=== PATIENT | female | born 1955 | race Caucasian/White ===

== ENCOUNTER → 2023-06-15 | Outpatient (CLI) | payer MEDICARE, BC | LOC: COL.RAD 06:46 | DX: N32.89 Other specified disorders of bladder (principal); N30.21 Other chronic cystitis with hematuria ==

== ENCOUNTER 2023-08-02 13:12 | Day surgery (SDC) | payer MEDICARE, BC ==
[~2023-08-02] VITALS: Ht 167.6 cm; Wt 75.0 kg
[2023-08-02] MEDS ORDERED: CALCIUM CITRAT200 M2 (14:04)
[2023-08-02] MEDS ORDERED: LIPITOR 40MG TA40 MG PO (14:04)
[2023-08-02] MEDS ORDERED: CRANBERRY 4001 EACH PO (14:05)
[2023-08-02] MEDS ORDERED: LANTUS100 U/ML SQ (14:07)
[2023-08-02] MEDS ORDERED: ESTRADERM0.1 MG/24 TD (14:07)
[2023-08-02] MEDS ORDERED: COZAAR 50MG50 MG/TAB PO (14:08)
[2023-08-02] MEDS ORDERED: MOBIC 7.5MG7.5 MG PO (14:08)
[2023-08-02] MEDS ORDERED: MACRODANTIN50 MG/CA1 PO (14:09)
[2023-08-02] MEDS ORDERED: SYNJARDY 12.5-1 EAC1 PO (14:12)
[2023-08-02] MEDS ORDERED: NOVOLOG 100U100 U/M1 SQ (14:12)
[2023-08-02] MEDS ORDERED: SYNTHROID0.137 MG PO (14:13)
[2023-08-02] MEDS ORDERED: VITAMINC500CH (14:13)
[2023-08-02] MEDS ORDERED: VITAMIN D 50,1.25 MG PO (14:13)
[2023-08-02] MEDS ORDERED: B12 PO (14:14)
[2023-08-02] MEDS ORDERED: METAMUCIL PO (14:15)
[2023-08-02 14:32] VITALS: BP 159/66; PULSE 74; TEMP 98.2
[2023-08-02 16:30] VITALS: BP 124/46; PULSE 60; TEMP 97.9
[2023-08-02 16:45] VITALS: BP 151/58; PULSE 58
[2023-08-02 17:00] VITALS: BP 142/47; PULSE 64
--- NOTE | 2023-08-02 17:25 | NUR ---
1630 RETURNS TO ROOM 1 PER CART. AWAKE, AELRT. RESP UNLABORED. HOB ELEVATED 60 DEGREES. DENIES ABD PAIN, REPORTS URINARY URGENCY. VITAL SIGNS OBTAINED 1632 AMBULATES TO BATHROOM WITH STANDBY ASSIST. REPORTS VOIDED WITHOUT DIFFICULTY. URINE LIGHT RED. 1635 LYING ON CART. HOB ELEVATED 70 DEGREES. CALL LIGHT AT SIDE. IN ROOM 1650 TOLERATES PO SODA AND CHEESE WITHOUT NAUSEA 1700 DISCHARGE INSTRUCTIONS REVIEWED. PATIENT VERBALIZES UNDERSTANDING. COPY PROVIDED IN DISCHARGE FOLDER 1714 SITS ON EDGE OF CART, DRESSES SELF, THEN AGAIN AMBULATES TO BATHROOM AND VOIDS WITHOUT DIFFICULTY
== END 2023-08-02 17:25 | disposition home or self-care (01) ==
LOC: SDCO 13:12
DX: N35.92 Unspecified urethral stricture, female (principal); N39.46 Mixed incontinence; R35.0 Frequency of micturition; R39.14 Feeling of incomplete bladder emptying; R39.11 Hesitancy of micturition; R31.29 Other microscopic hematuria; N30.20 Other chronic cystitis without hematuria; R82.81 Pyuria; Z79.899 Other long term (current) drug therapy; Z87.891 Personal history of nicotine dependence
CPT/HCPCS: C1769; J0690; J2405; J2704; J3010; J7120

== ENCOUNTER 2024-05-12 05:55 | Day surgery (SDC) | payer MEDICARE, BC, OTHER ==
[2024-05-12] VITALS (7 sets, daily range): BP systolic 119–151; BP diastolic 45–76; PULSE 57–83; TEMP 97.1–98.5
[~2024-05-12] VITALS: Ht 167.6 cm; Wt 74.6 kg
[~2024-05-12 05:55] MED LIST: B12 PO; CALCIUM CITRAT200 M2; COZAAR 50MG50 MG/TAB PO; CRANBERRY 4001 EACH PO; ESTRADERM0.1 MG/24 TD; LANTUS100 U/ML SQ; LIPITOR 40MG TA40 MG PO; MACRODANTIN50 MG/CA1 PO; METAMUCIL PO; MOBIC 7.5MG7.5 MG PO; NOVOLOG 100U100 U/M1 SQ; SYNJARDY 12.5-1 EAC1 PO; SYNTHROID0.137 MG PO; VITAMIN D 50,1.25 MG PO; VITAMINC500CH
[2024-05-12] MEDS ORDERED: OZEMPIC0.25 MG/02 SQ (06:55)
[2024-05-12] MEDS ORDERED: FORT1000TA PO (06:57)
[2024-05-12] MEDS ORDERED: NORVASC 10MG10 MG PO (06:58)
[2024-05-12] MEDS ORDERED: Famotidine 20 MG TAB PO SCH (07:00)
[2024-05-12] MEDS ORDERED: D5 1/2 NS 1,000 ML IV SCH (07:00)
[2024-05-12] MEDS ORDERED: Lidocaine PF 2% (20 MG/ML) 5 ML VIAL ONE (07:33)
[2024-05-12] MEDS ORDERED: fentaNYL 50 MCG/ML 2 ML VIAL ONE ×2 (07:33→08:22)
[2024-05-12] MEDS ORDERED: dexAMETHasone 10 MG/ML VIAL ONE (07:35)
[2024-05-12] MEDS ORDERED: Ondansetron 4 MG/2 ML VIAL ONE (07:35)
[2024-05-12] MEDS ORDERED: Meperidine 50 MG/ML 1 ML VIAL IV PRN (07:45)
[2024-05-12] MEDS ORDERED: fentaNYL 50 MCG/ML 1 ML SYRINGE/VIAL [PACU/SDC ONLY] IV PRN (07:45)
[2024-05-12] MEDS ORDERED: hydrALAZINE 20 MG/ML 1 ML VIAL IV PRN (07:45)
[2024-05-12] MEDS ORDERED: Ondansetron 4 MG/2 ML VIAL IV PRN ×2 (07:45→09:45)
[2024-05-12] MEDS ORDERED: HYDROmorphone 1 MG/1 ML SYRINGE [PACU/SDC ONLY] IV PRN (07:45)
[2024-05-12] MEDS ORDERED: Lidocaine 2% (20 MG/ML) 20 ML UROJET UR ONE (08:30)
[2024-05-12] MEDS ORDERED: Iohexol 350 - 100 ML VIAL URETER-B ONE (08:30)
[2024-05-12] MEDS ORDERED: Insulin Lispro (HumaLOG) SQ SCH (09:24)
[2024-05-12] MEDS ORDERED: Dextrose (Glucose) 15 GM (4 x 3.75 GM) Chewable TABLET PACK PO PRN (09:30)
[2024-05-12] MEDS ORDERED: Dextrose 50% Water 25 GM/50 ML SYRINGE IV PRN (09:30)
[2024-05-12] MEDS ORDERED: Glucagon 1 MG VIAL IM PRN (09:30)
[2024-05-12] MEDS ORDERED: NS 1,000 ML IV SCH (09:45)
[2024-05-12] MEDS ORDERED: Naloxone 0.4 MG/ML VIAL IV PRN (09:45)
[2024-05-12] MEDS ORDERED: NORCO 325 MG-51 TAB PO (09:45)
[2024-05-12] MEDS ORDERED: Hyoscyamine 0.125 MG Sublingual TAB SL PRN (09:45)
[2024-05-12] MEDS ORDERED: PYRIDIUM 100MG100 MG PO (09:45)
[2024-05-12] MEDS ORDERED: Acetaminophen 325 MG TAB PO PRN (09:45)
--- NOTE | 2024-05-12 09:45 | NUR ---
PATIENT BACK IN ROOM POST-OP. ORIENTED BUT DROWSY. VSS. HEAD TO TOE ASSESSMENT WNL. PATIENT RESTING UP IN BED WITH AT BEDSIDE. LIQUIDS AT BEDSIDE. PLAN IS TO DISCHARGE TO HOME WHEN CRITERIA MEET. NO OTHER NEEDS AT THIS TIME. CALL LIGHT IN REACH.
[2024-05-12 10:18] LABS: COLLECTION METHOD CATHETER
[2024-05-12 10:37] LABS: URINE COLOR OTHER (YELLOW)
[2024-05-12 10:38] LABS: URINE APPEARANCE TURBID (CLEAR/HAZY); URINE BLOOD 3+ (NEGATIVE); URINE GLUCOSE Negative (NEGATIVE); URINE KETONE Negative (NEGATIVE); URINE NITRATE Negative (NEGATIVE); URINE PROTEIN(semi-quant) 3+ (NEGATIVE); URINE UROBILINOGEN 0.2 E.U/dL (0.2-1.0)
[2024-05-12 10:48] LABS: URINE RBC >50 /hpf (0-2); URINE WBC >50 /hpf (0-2)
--- NOTE | 2024-05-12 10:52 | NUR ---
PATIENT ASSISTED INTO BATHROOM FOR THE THIRD TIME SINCE COMING BACK FROM SURGERY. PATIENT HAS NOT BEEN ABLE TO VOID YET. RN EDUCATED PATIENT ABOUT STENT. HAT IN BATHROOM TO MEASURE ANY OUTPUT, PATIENT INSTRUCTED WE WILL DO A BLADDER SCAN IS SHE IS STILL UNABLE TO VOID.
--- NOTE | 2024-05-12 11:14 | NUR ---
Data: Spiritual care visit offered to Patient Visitor who was waiting in room while Patient was in surgery. Visitor declined. Assessment: None at this time. Plan of Care: Buffet Server educated Visitor as to how to request Buffet Server should he change his mind. Chaplains will remain available as requested while Patient is admitted to this hospital.
--- NOTE | 2024-05-12 11:50 | NUR ---
PATIENT HAS AMBULATED TO BATHROOM X4 TO TRY AND VOID BUT HAS NOT BEEN ABLE TO VOID. BLADDER SCAN SHOWED 350CC. PATIENT C/O PAIN & PRESSURE. CALLED UROLOGY, SEE ORDERS TO PLACE A HYATT. 18F HYATT INSERTED ON FIRST ATTEMPT AND PATIENT TOLERATED WELL. NOTED 350CC OF HAZY, PEACH COLORED URINE. PATIENT REPORTS SHE FEELS SO MUCH BETTER. LUNCH TRAY ORDERED. AT BEDSIDE. VSS.
--- NOTE | 2024-05-12 13:50 | NUR ---
PATIENT DISCHARGING HOME WITH HYATT. GAVE CATH CARE & LEG BAG TEACHING, PATIENT VERBALIZED UNDERSTANDING AND REPORTS SHE HAS HAD A HYATT AT HOME BEFORE. ANSWERED QUESTIONS/CONCERNS. DC'D WITH HYATT SUPPLIES. SAID HIS OFFICE WILL CALL THE PATIENT FOR A F/U APT. DC'D RIGHT HAND IV, CATH TIP INTACT AND PATIENT TOLERATED WELL, AND COVERED SITE WITH GAUZE & COBAN. PATIENT IS DRESSED, PACKED AND ESCORTED OUT TO PERSONAL VEHICLE WITH .
== END 2024-05-12 13:54 | disposition home health service (06) ==
LOC: SDCO 05:55 → SURG 06:35 → SDCO 08:00 → SURG 13:54
PROVIDERS: Urology
DX: N28.89 Other specified disorders of kidney and ureter (principal); N30.21 Other chronic cystitis with hematuria; E11.9 Type 2 diabetes mellitus without complications; Z79.4 Long term (current) use of insulin; Z79.84 Long term (current) use of oral hypoglycemic drugs; Z96.89 Presence of other specified functional implants; Z87.891 Personal history of nicotine dependence
CPT/HCPCS: OP; C1769; C2617; J0690; J1100; J1815; J2405; J2704; J3010; Q9967